=== PATIENT | female | born 1975 | race Caucasian/White ===

== ENCOUNTER → 2017-02-16 | Day surgery (SDC) | payer OTHER ==
[~2017-02-16] MED LIST: HYDROCHLOROTHIA25 MG PO; INVOKANA100 MG PO; LEVOTHYROXINE25 MC1 PO; LINZESS145 MCG PO; PROTONIX PO; REMERON45 MG PO; TEMAZEPAM PO; VALIUM10 MG PO; ZESTRIL5 MG PO; [UNRECOGNIZED DRUG - OTHER] PO
--- NOTE | ~2017-02-16 | OR ---
Unit #: [id number] #: [id number] Patient: BRUNO MORENO [id number] [address] [place], [place] [address] [id number] MR#: [id number] NAME: BRUNO MORENO ROOM: Date of Procedure: 02/16/2017 Admission Date: 02/16/2017 Surgeon: Wesley Villalobos M.D. : 1975 Attending Physician: Wesley Villalobos M.D. Primary Care Physician: Dana Hough.PLupilloRPrincess OPERATIVE REPORT PREOPERATIVE DIAGNOSIS Malfunction of Flowonix intrathecal pain pump. POSTOPERATIVE DIAGNOSIS Malfunction of Flowonix intrathecal pain pump. PROCEDURES PERFORMED 1. Removal of Flowonix intrathecal pump with replacement with SynchroMed II Medtronic intrathecal pump and implantation of catheter and revision of catheter. 2. Fluoroscopy. 3. Physician filling of pump. SURGICAL INDICATION AND RATIONALE Ms. Viji Moreno is a pleasant 41-year-old female, who has an indwelling Flowonix pump, which has been in place for 2 years. Both the patient and myself received an advisory from [employer] saying that they had a patient-related due to the Flowonix pump being placed into an MRI. After the patient did get this advisory, she felt very uncomfortable and feared for any malfunctioning of this pump. She had an in detailed discussion with me and I told her that if it would make her feel more comfortable that this may be an option at this time. The patient has undergone a cardiac evaluation, which did not show any contraindications. I have also had an in detailed discussion with the patient regarding the risks, benefits, and alternatives available and the consent decree and all her questions were answered to her satisfaction. I used a teach back method to make sure that the patient understood my explanations. The patient also had an education process with Loli Spangler who is the [employer] credit resolution representative, who also had a discussion with the patient regarding the consent decree and all her questions were answered to her satisfaction. The patient understands the surgical procedure involved removing the Flowonix pump and replacing it with a Medtronic 20 mL intrathecal pump in addition to placing a special adapter to connect the two pieces of catheter. DESCRIPTION OF PROCEDURE After obtaining full informed consent and after discussion with the patient of possible complications including infection, bleeding, paralysis, mild headaches, , and other perioperative complications were discussed with the patient and consent was obtained in front of nurse, Marie. The patient was then taken back to the operating room, where Unit #: [id number] #: [id number] Patient: BRUNO MORENO a time-out was done in accordance to the joint commission guidelines where the patient's identity, procedure, and site of procedure were verified. The patient received antibiotic coverage 30 minutes before entering the operating room. Then, the anesthesiologist induced general anesthesia and the patient was in the supine position and she was prepped and draped in the usual fashion. Standard monitors were placed and monitored anesthesia care was provided by the anesthesiologist. I then anesthetized the skin using a combination of 1% lidocaine with 0.5% Marcaine with epinephrine. I then used a #10 blade to make an incision over the pump and without much difficulty, I was able to remove the Flowonix pump and I cut the catheter from the pump and used a special pin connector catheter to secure the existing catheter, which was then connected to the Medtronic 20 mL SynchroMed II pump. The pocket was copiously irrigated with irrigant and the pump was filled by me with hydromorphone at a concentration of 5 mg/mL. Once the connection was made, I aspirated the sideport using a 24-gauge Parikh needle and I was able to obtain clear flow of CSF. This represents that the entire system was intact. I then placed a Tyrx pouch into the base of the pocket and then placed the pump in place and sutured the pump via the four anchors using 3-0 Prolene sutures. I then inspected this incision carefully and it was closed in two layers using interrupted 3-0 Vicryl sutures and the skin was approximated with shauna. A Telfa and Tegaderm dressing were placed, and the patient was brought back to the recovery room for neurological monitoring. PLAN OF CARE The patient had an uneventful recovery and was discharged home neurologically intact with plans to return to my office in 7 days to have the shauna removed. I had a discussion with the patient's and daughter discussing the course of the surgical procedure. I have started her pump at what it was previously at 2.9 mg a day; however, the patient is able to access her patient respiratory therapy technician at 0.03 mg up to t.i.d. I have also given the patient a prescription for hydrocodone at 5/325 to take one every 6 hours for incisional pain. I have given her 30 pills with no refills. The Medtronic pump serial #[id number]. Dictated by.Lupillo. Gino Leo/raul TD: 02/16/2017 12:09 JOB #: [id number] OPERATIVE REPORT Page 1 of 1 X Wesley Villalobos MD PROCEDURE OPERATIVE NOTE
== END | disposition home or self-care (01) ==
LOC: CSUR 06:42
DX: Z45.1 Encounter for adjustment and management of infusion pump (principal); E11.9 Type 2 diabetes mellitus without complications; M19.90 Unspecified osteoarthritis, unspecified site; R11.0 Nausea; F41.9 Anxiety disorder, unspecified; E89.0 Postprocedural hypothyroidism; Z79.84 Long term (current) use of oral hypoglycemic drugs; Z98.890 Other specified postprocedural states; Z90.49 Acquired absence of other specified parts of digestive tract; Z79.899 Other long term (current) drug therapy; Z88.0 Allergy status to penicillin; Z88.1 Allergy status to other antibiotic agents; Z90.710 Acquired absence of both cervix and uterus; Z88.8 Allergy status to other drugs, medicaments and biological substances
CPT/HCPCS: 82947; C1772; J1170; J2250; J2270; J2765; J3370